=== PATIENT | female | born 1965 | race Caucasian/White ===

== ENCOUNTER 2017-01-23 08:42 | Emergency (ER) | payer SELFPAY ==
[2017-01-23] MEDS ORDERED: Ibuprofen TAB* 400 MG PO ONE (09:36)
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
[2017-01-23 11:47] VITALS: BP 135/84
--- NOTE | 2017-01-24 09:13 | RAD ---
INDICATION: Right forearm injury. TECHNIQUE: 2 views of the right forearm were obtained. FINDINGS: The bones are in normal alignment. No fracture is seen. IMPRESSION: NO EVIDENCE FOR FRACTURE.
--- NOTE | 2017-01-24 09:14 | RAD ---
INDICATION: Right wrist injury. TECHNIQUE: 3 views of the right wrist were obtained. FINDINGS: There is soft tissue swelling present over the dorsal aspect of the wrist. The bones are in normal alignment. No fracture is seen. IMPRESSION: SOFT TISSUE SWELLING, NO FRACTURE IS SEEN. IF THE PATIENT'S SYMPTOMS PERSIST, RECOMMEND FOLLOW-UP IMAGING.
== END 2017-01-23 11:46 | disposition home or self-care (01) ==
LOC: ED 08:42
DX: S50.11XA Contusion of right forearm, initial encounter (principal); V43.52XA Car driver injured in collision with other type car in traffic accident, initial encounter; Z87.891 Personal history of nicotine dependence
CPT/HCPCS: 93005